=== PATIENT | male | born 1930 | race American Indian/Alaskan Native ===

== ENCOUNTER 2017-03-08 13:25 | Outpatient (CLI) | payer MEDICARE ==
--- NOTE | 2017-03-08 15:43 | Ultrasound Report ---
ULTRASOUND RENAL INDICATION: Chronic kidney disease, stage III. COMPARISON: None similar. FINDINGS: Renal sonography suggests borderline/mild increased renal cortical echogenicity. Grossly preserved contours. No hydronephrosis. RIGHT KIDNEY measures 9.8 x 6 x 5.4 cm with cortical thickness of 1.7 cm. A 4.6 x 3.5 x 3.4 cm left lower renal cortical cyst, image 10. LEFT KIDNEY estimated at 9.4 x 5.1 x 6.9 cm with cortical thickness of 1.9 cm. URINARY BLADDER suboptimally distended and assessed. CONCLUSION: Mild underlying medical renal disease and a right lower renal cyst without acute sonographic abnormality. Please correlate. Thank you for the opportunity to participate in this patient's care.
== END 2017-03-08 13:26 | disposition home or self-care (01) ==
LOC: US 13:25
PROVIDERS: ATTEND Internal Medicine Nephrology
DX: N18.3 Chronic kidney disease, stage 3 (moderate) (principal); N28.1 Cyst of kidney, acquired; N32.89 Other specified disorders of bladder
CPT/HCPCS: 76770